=== PATIENT | male | born 1975 | race Caucasian/White ===

== ENCOUNTER 2019-11-15 11:18 | Emergency (ER) | payer MEDICAID ==
[~2019-11-15] VITALS: Ht 185.4 cm; Wt 100.0 kg
[~2019-11-15 11:18] MED LIST: BACL10TA PO
[2019-11-15 11:21] VITALS: BP 119/92
[2019-11-15] MEDS ORDERED: CEPH-572 PO (11:33)
[2019-11-15] MEDS ORDERED: SULF1TAB49 PO (11:33)
== END 2019-11-15 11:50 | disposition home or self-care (01) ==
LOC: ER 11:18
DX: L02.416 Cutaneous abscess of left lower limb (principal); M25.462 Effusion, left knee; M25.562 Pain in left knee; G89.29 Other chronic pain; F12.90 Cannabis use, unspecified, uncomplicated; F15.90 Other stimulant use, unspecified, uncomplicated; Z79.2 Long term (current) use of antibiotics; Z79.899 Other long term (current) drug therapy
CPT/HCPCS: 99283